=== PATIENT | female | born 1950 | race Caucasian/White ===

== ENCOUNTER 2018-02-01 16:34 | Emergency (ER) | payer OTHER ==
[~2018-02-01] VITALS: Ht 157.5 cm; Wt 90.7 kg
[~2018-02-01 16:34] MED LIST: CELE200; CIPR500 PO; DIPH50; HYDACE5 PO; IBUP200; MULVITSO; NAPR220; VITB100
[2018-02-01] MEDS ORDERED: BACL10 PO (17:00)
[2018-02-01] MEDS ORDERED: GLUC500 PO (17:01)
[2018-02-01] MEDS ORDERED: GABA300 PO (17:01)
[2018-02-01] MEDS ORDERED: TRAM50 PO (17:01)
[2018-02-01] MEDS ORDERED: HYDR1TAB94 PO (18:08)
== END 2018-02-01 18:23 | disposition home or self-care (01) ==
LOC: ER 16:34
DX: S83.241A Other tear of medial meniscus, current injury, right knee, initial encounter (principal); E11.9 Type 2 diabetes mellitus without complications; Z88.0 Allergy status to penicillin; Z88.2 Allergy status to sulfonamides; Z88.8 Allergy status to other drugs, medicaments and biological substances; Z79.899 Other long term (current) drug therapy; W18.40XA Slipping, tripping and stumbling without falling, unspecified, initial encounter; Y93.01 Activity, walking, marching and hiking
CPT/HCPCS: 29505; 73562-RT; 99283-25

== ENCOUNTER 2018-02-13 07:35 | Day surgery (SDC) | payer OTHER ==
[~2018-02-13] VITALS: Ht 157.5 cm; Wt 92.2 kg
[~2018-02-13 07:35] MED LIST changes: +BACL10 PO; +GABA300 PO; +GLUC500 PO; +HYDR1TAB94 PO; +TRAM50 PO
== END 2018-02-13 11:23 | disposition home or self-care (01) ==
LOC: ORSCSDS 07:35
PROVIDERS: Orthopaedic Surgery
PROC: 0SBC4ZZ Excision of Right Knee Joint, Percutaneous Endoscopic Approach (ICD-10-PCS; principal; 2018-02-13 09:00)
DX: S83.241A Other tear of medial meniscus, current injury, right knee, initial encounter (principal); E11.9 Type 2 diabetes mellitus without complications; M32.9 Systemic lupus erythematosus, unspecified; M79.7 Fibromyalgia; E66.01 Morbid (severe) obesity due to excess calories; Z68.37 Body mass index [BMI] 37.0-37.9, adult; Z79.899 Other long term (current) drug therapy
CPT/HCPCS: 82947; C1713; J0171; J3010; J7120

== ENCOUNTER → 2018-08-12 | Outpatient (CLI) | payer OTHER ==
[2018-08-13 13:54] LABS: Stool Occult Blood Guaiac 1 Neg (Neg)
== END | disposition home or self-care (01) ==
LOC: LAB EV 08:30
PROVIDERS: Family Medicine
DX: Z80.0 Family history of malignant neoplasm of digestive organs (principal)
CPT/HCPCS: 82270

== ENCOUNTER → 2021-02-27 | Outpatient (CLI) | payer OTHER | END | disposition home or self-care (01) | LOC: LAB 17:30 → LAB SHORT 17:30 | DX: R32 Unspecified urinary incontinence (principal) | CPT/HCPCS: 87077; 87086; 87186 ==

== ENCOUNTER 2022-03-12 10:42 | Day surgery (SDC) | payer OTHER ==
[~2022-03-12] VITALS: Ht 157.5 cm; Wt 90.7 kg
[2022-03-12] MEDS ORDERED: OMEP20ER (11:13)
== END 2022-03-12 13:45 | disposition home or self-care (01) ==
LOC: ORSCSDS 10:42
PROVIDERS: Student in an Organized Health Care Education/Training Program
PROC: 0DBN8ZX Excision of Sigmoid Colon, Via Natural or Artificial Opening Endoscopic, Diagnostic (ICD-10-PCS; principal; 2022-03-12 12:00)
PROC: 0DBM8ZX Excision of Descending Colon, Via Natural or Artificial Opening Endoscopic, Diagnostic (ICD-10-PCS; principal; 2022-03-12 12:00)
PROC: 0DBL8ZX Excision of Transverse Colon, Via Natural or Artificial Opening Endoscopic, Diagnostic (ICD-10-PCS; principal; 2022-03-12 12:00)
PROC: 0DB58ZX Excision of Esophagus, Via Natural or Artificial Opening Endoscopic, Diagnostic (ICD-10-PCS; principal; 2022-03-12 12:00)
DX: R13.10 Dysphagia, unspecified (principal); K44.9 Diaphragmatic hernia without obstruction or gangrene; K21.9 Gastro-esophageal reflux disease without esophagitis; D12.3 Benign neoplasm of transverse colon; D12.4 Benign neoplasm of descending colon; D12.5 Benign neoplasm of sigmoid colon; K57.30 Diverticulosis of large intestine without perforation or abscess without bleeding; Z12.11 Encounter for screening for malignant neoplasm of colon; Z80.0 Family history of malignant neoplasm of digestive organs; Z86.010 Personal history of colon polyps; I10 Essential (primary) hypertension; E11.9 Type 2 diabetes mellitus without complications; G47.33 Obstructive sleep apnea (adult) (pediatric); E66.9 Obesity, unspecified; Z68.37 Body mass index [BMI] 37.0-37.9, adult; E07.9 Disorder of thyroid, unspecified; Z98.84 Bariatric surgery status; J45.909 Unspecified asthma, uncomplicated; E78.5 Hyperlipidemia, unspecified; Z79.84 Long term (current) use of oral hypoglycemic drugs; Z79.899 Other long term (current) drug therapy
CPT/HCPCS: 82947; 88305; J2704; J7120

== ENCOUNTER → 2023-03-18 | Outpatient (CLI) | payer OTHER ==
[~2023-03-18] MED LIST changes: +OMEP20ER
== END ==
LOC: LAB 17:12 → LAB SHORT 17:12
DX: R30.0 Dysuria (principal)
CPT/HCPCS: 87077; 87086; 87186

== ENCOUNTER → 2023-12-02 | Outpatient (CLI) | payer OTHER | END | disposition home or self-care (01) | LOC: LAB 16:39 → LAB SHORT 16:39 | DX: R30.0 Dysuria (principal) | CPT/HCPCS: 87077; 87086; 87186 ==

== ENCOUNTER 2025-02-05 16:49 | Emergency (ER) | payer OTHER ==
[~2025-02-05] VITALS: Ht 157.5 cm; Wt 84.8 kg
[2025-02-05 17:02] VITALS: BP 122/93
[2025-02-05] MEDS ORDERED: HYDROcodone 7.5-APAP 325 TAB PO ONE (19:00)
[2025-02-05] MEDS ORDERED: RX Prepack 6 Tabs Oxycodone 5mg UD ONE (21:00)
[2025-02-05] MEDS ORDERED: HYDR1TAB94 PO (21:02)
== END 2025-02-05 21:15 | disposition home or self-care (01) ==
LOC: ER 16:49
DX: S30.0XXA Contusion of lower back and pelvis, initial encounter (principal); S70.11XA Contusion of right thigh, initial encounter; R60.0 Localized edema; E11.9 Type 2 diabetes mellitus without complications; Z79.899 Other long term (current) drug therapy; Z88.2 Allergy status to sulfonamides; Z88.0 Allergy status to penicillin; W18.30XA Fall on same level, unspecified, initial encounter
CPT/HCPCS: 72170; 73562-LT; 73590; 99283-25; A9270

== ENCOUNTER 2025-04-21 14:44 | Day surgery (SDC) | payer OTHER ==
[2025-04-21] VITALS (10 sets, daily range): BP systolic 110–139; BP diastolic 40–73
[~2025-04-21 14:44] MED LIST changes: +ACET325 PO; +ALBU90OI INH; +Amaryl1 MG PO; +Calcium Carbon500 MG PO; +Clindamycin 900mg in D5W 50ML 50 ML IV SCH; +DIPH25 PO; +MAGNESIUM CITR100 M1 PO; +MERIBIN5 MG PO; +MOUNJARO10 MG/0.5 SC; +MULTI-VITAMIN1 EAC2 PO; +VITAMIN D310 MC1 PO; +[UNRECOGNIZED DRUG - OTHER] PO
[2025-04-21] MEDS ORDERED: Bupivacaine 0.5% W/EPI 1:200000 SDV 30 ML Vial ONE (15:05)
[2025-04-21] MEDS ORDERED: EpiNEPhrine 1 MG/1 ML 1ML Vial ONE (15:05)
[2025-04-21] MEDS ORDERED: Magnesium Hydroxide Conc 10 ML UDC PO PRN (15:20)
[2025-04-21] MEDS ORDERED: HYDROcodone 5-APAP 325 TAB PO PRN (15:25)
[2025-04-21] MEDS ORDERED: CeFAZolin Sodium 2,000 MG in NS 100 ML IV SCH (15:25)
[2025-04-21] MEDS ORDERED: CeFAZolin Sodium 2,000 MG VIAL ONE (15:28)
--- NOTE | 2025-04-21 15:33 | NUR ---
Ambulatory in Day Surgery History, Chart, Medications and Allergies reviewed before start of procedure. Pre-Op teaching done. Pt verbalizes understanding. Patient States Post-Procedure ride home has been arranged.
[2025-04-21] MEDS ORDERED: Albuterol HFA200 ACT/6.7 GM INH INH PRN (15:35)
[2025-04-21] MEDS ORDERED: FentaNYL Citrate 50 MCG/ML 2 ML Injection ONE ×3 (15:37→17:12)
[2025-04-21] MEDS ORDERED: Ondansetron HCl 2 MG / ML 2ML Vial ONE (15:51)
[2025-04-21] MEDS ORDERED: Metoclopramide HCl 5MG / ML 2ML Vial ONE (15:51)
[2025-04-21] MEDS ORDERED: Morphine Sulfate 4 MG/1 ML Injection IV PRN (16:15)
[2025-04-21] MEDS ORDERED: FentaNYL Citrate 50 MCG/ML 2 ML Injection IV PRN ×2 (16:15)
[2025-04-21] MEDS ORDERED: Ondansetron HCl 2 MG / ML 2ML Vial IV PRN (16:15)
[2025-04-21] MEDS ORDERED: HYDROmorphone HCl/Pf 1MG SYR IV PRN (16:20)
[2025-04-21] MEDS ORDERED: Metoclopramide HCl 5MG / ML 2ML Vial IV PRN (16:20)
[2025-04-21] MEDS ORDERED: Sugammadex Sodium 200 MG/2ML SDV (100 MG/ML) ONE ×2 (16:31→16:49)
--- NOTE | 2025-04-21 17:45 | NUR ---
Ambulatory in Day Surgery. DISCHARGE INSTRUCTIONS UNDERSTOOD. RIDE HOME DISCUSSED AND VERIFIED. DRESSED IN DAY SURGERY. BELONGINGS WITH PATIENT. WHEELCHAIRED TO [facility] FOR RIDE HOME.
[2025-04-22] MEDS ORDERED: Multivitamins 1 Tab PO SCH (09:00)
[2025-04-22] MEDS ORDERED: Misc. Tablet PO SCH (09:00)
== END 2025-04-21 23:00 | disposition home or self-care (01) ==
LOC: ORSCMMR 14:44 → ORD 16:00 → ORSCMMR 23:00
PROVIDERS: Orthopaedic Surgery
PROC: 0SBD4ZZ Excision of Left Knee Joint, Percutaneous Endoscopic Approach (ICD-10-PCS; principal; 2025-04-21 16:00)
DX: S83.242A Other tear of medial meniscus, current injury, left knee, initial encounter (principal); E11.9 Type 2 diabetes mellitus without complications; M32.9 Systemic lupus erythematosus, unspecified; J45.909 Unspecified asthma, uncomplicated; F41.9 Anxiety disorder, unspecified; F32.A Depression, unspecified; E66.9 Obesity, unspecified; Z68.34 Body mass index [BMI] 34.0-34.9, adult; Z79.84 Long term (current) use of oral hypoglycemic drugs; Z79.85 Long-term (current) use of injectable non-insulin antidiabetic drugs; Z79.899 Other long term (current) drug therapy
CPT/HCPCS: 82947; A9270; J0169; J0690; J2405; J2765; J3010; J7120